=== PATIENT | male | born 1950 | race Caucasian/White ===

== ENCOUNTER 2019-03-25 15:38 | Emergency (ER) | payer OTHER ==
[~2019-03-25] VITALS: Ht 175.3 cm; Wt 101.8 kg
[2019-03-25 15:56] VITALS: TEMP 97
[2019-03-25 16:54] VITALS: BP 143/89; PULSE 95
== END 2019-03-25 16:54 | disposition home or self-care (01) ==
LOC: COL.ER 15:38
DX: T83.038A Leakage of other urinary catheter, initial encounter (principal); E11.9 Type 2 diabetes mellitus without complications; I10 Essential (primary) hypertension